=== PATIENT | male | born 1935 | race African-American/Black ===

== ENCOUNTER → 2016-06-22 | Outpatient (CLI) | payer MEDICARE, BC, OTHER ==
[2016-06-22 17:59] LABS: ANION GAP 12 (5-19); BLOOD UREA NITROGEN 26 mg/dL (7-20); CALCIUM 9.2 mg/dL (8.4-10.2); CARBON DIOXIDE 27 mmol/L (22-30); CHLORIDE 103 mmol/L (98-107); CREATININE RESULT 1.66 mg/dL (0.52-1.25); GLUCOSE 99 mg/dL (75-110); POTASSIUM 3.8 mmol/L (3.6-5.0); SODIUM 142.4 mmol/L (137-145)
== END ==
LOC: OD 16:24
PROVIDERS: ATTEND Internal Medicine Nephrology
DX: N18.3 Chronic kidney disease, stage 3 (moderate) (principal)
CPT/HCPCS: 36415; 80048

== ENCOUNTER → 2016-07-29 | Outpatient (CLI) | payer MEDICARE, BC, OTHER ==
[~2016-07-29] MED LIST: REGADENOSON INJ 0.4 MG/5 ML DISP.SYRIN IV ONE
--- NOTE | 2016-07-30 22:52 | DRAGON STRESS TEST REPORT ---
2 Day Intravenous Lexiscan Cardiolite stress test using single photon emmision computerized tomography. Date of Resting procedure: 07/30/2016 Date of Stress procedure: 07/29/2016 Ordering Provider: Dr. Erica Miller Primary Care Provider: Miss Ryann Moreno of [facility]. Indication: Chest pain, and dyspnea on exertion. Coronary risk factors: Age, dyslipidemia, and family history of coronary artery disease. Resting EKG: Sinus Rhythm. Poor R leads V1 to V6. The patient no chest pain or discomfort, and there was no arrhythmias seen. Stress EKG: No changes of ischemia. Reason for termination: Protocol. Conclusions: Normal EKG and hemodynamic response to IV Lexiscan. Nuclear data: On 07/29/2016 the patient was given intravenous Lexiscan at a dose of 0.4 mg in 5 mL intravenously, followed by flush with normal saline. Subsequently the stress dose of 32.2 millicuries of technetium 99m sestamibi was injected intravenously. As per protocol stress gated images were obtained. At rest , on 07/30/2016 the patient was given 29.8 millicuries of technetium 99m sestamibi injected intravenously. As per protocol rest non gated SPECT images were obtained Nuclear interpretation: Review of images showed that there is moderate reversible ischemia in a setting of mild scar involving the apical septum and apical apical lateral wall. There was also a mild to mild to moderate reversible ischemia in the apical and mid anterior wall. There was a scar/OR involving the apical inferior wall. . T. I D. ratio was normal at 0.80. Computer read rest, and stress left ventricular ejection fraction were 47 %, and 48 %, respectively. Conclusion: 1. There is scintigraphic evidence of Lexiscan induced moderate reversible ischemia in a setting of mild scar involving the apical septum and apical lateral wall. 2. There is scintigraphic evidence of mild to moderate reversible ischemia in the apical and mid anterior wall. 3. There is evidence of a scar/OR by Lexiscan involving the apical inferior wall. 4. 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 Recommendations: 1.Aggressive medical treatment of coronary artery disease and cardiomyopathy. 2.in view of reversible ischemia and reduction of the LV ejection fraction would strongly recommend cardiac catheterization. 3.would recommend getting an echocardiogram for LV ejection fraction correlation. 4.Aggressive risk factor modification, and treating the underlying co- morbidities. MTDD
== END ==
LOC: RAD 06:44
PROVIDERS: ATTEND Specialist
DX: R07.9 Chest pain, unspecified (principal); R06.00 Dyspnea, unspecified
CPT/HCPCS: 93017; 78452; A9500; J2785; Q9969

== ENCOUNTER → 2016-11-09 | Outpatient (CLI) | payer MEDICARE, BC, OTHER ==
[2016-11-09 16:51] LABS: APPEARANCE,URINE CLEAR; BILIRUBIN,URINE NEGATIVE (NEGATIVE); GLUCOSE, URINE NEGATIVE (NEGATIVE); KETONES,URINE NEGATIVE (NEGATIVE); LEUKOCYTE ESTERASE,URINE NEGATIVE (NEGATIVE); NITRITE,URINE NEGATIVE (NEGATIVE); PROTEIN,URINE NEGATIVE (NEGATIVE); UROBILINOGEN,URINE NEGATIVE mg/dL (<2.0)
[2016-11-09 17:13] LABS: ANION GAP 14 (5-19); BLOOD UREA NITROGEN 35 mg/dL (7-20); CALCIUM 9.3 mg/dL (8.4-10.2); CARBON DIOXIDE 24 mmol/L (22-30); CHLORIDE 104 mmol/L (98-107); CREATININE RESULT 1.96 mg/dL (0.52-1.25); GLUCOSE 163 mg/dL (75-110); POTASSIUM 3.8 mmol/L (3.6-5.0); SODIUM 142.3 mmol/L (137-145)
[2016-11-11 11:40] LABS: CREATININE URINE 115.5 mg/dL (Not Estab.); MICROALBUMIN URINE 5.5 ug/mL (Not Estab.)
== END ==
LOC: OD 15:54
PROVIDERS: ATTEND Internal Medicine Nephrology
DX: I12.9 Hypertensive chronic kidney disease with stage 1 through stage 4 chronic kidney disease, or unspecified chronic kidney disease (principal); N18.3 Chronic kidney disease, stage 3 (moderate)
CPT/HCPCS: 36415; 80048; 81001; 82043; 82570

== ENCOUNTER → 2017-03-15 | Outpatient (CLI) | payer MEDICARE, BC, OTHER ==
[2017-03-15 17:20] LABS: ABSOLUTE EOSINOPHILS # (AUTO) 0.2 10^3/uL (0.0-0.6); ABSOLUTE LYMPHOCYTES (AUTO) 1.6 10^3/uL (0.5-4.7); ABSOLUTE MONOCYTES (AUTO) 0.8 10^3/uL (0.1-1.4); ABSOLUTE NEUT (AUTO) 3.2 10^3/uL (1.7-8.2); BASOPHILS % (AUTO) 0.4 % (0-2); EOSINOPHILS % (AUTO) 2.9 % (0-6); HEMATOCRIT 36.8 % (37.9-51.0); HEMOGLOBIN 12.6 g/dL (13.5-17.0); LYMPHOCYTES % (AUTO) 27.7 % (13-45); MEAN CORPUSCULAR HEMOGLOBIN 36.3 pg (27.0-33.4); MEAN CORPUSCULAR HGB CONC 34.3 g/dL (32.0-36.0); MEAN CORPUSCULAR VOLUME 106 fl (80-97); MONOCYTES % (AUTO) 13.4 % (3-13); RED BLOOD COUNT 3.47 10^6/uL (4.35-5.55); RED CELL DISTRIBUTION WIDTH 16.4 % (11.5-14.0); SEGMENTED NEUTROPHILS % (AUTO) 55.6 % (42-78); WHITE BLOOD COUNT 5.7 10^3/uL (4.0-10.5)
[2017-03-15 17:43] LABS: ALBUMIN 3.8 g/dL (3.5-5.0); ANION GAP 12 (5-19); BLOOD UREA NITROGEN 35 mg/dL (7-20); CALCIUM 9.6 mg/dL (8.4-10.2); CARBON DIOXIDE 27 mmol/L (22-30); CHLORIDE 104 mmol/L (98-107); CREATININE RESULT 2.02 mg/dL (0.52-1.25); GLUCOSE 124 mg/dL (75-110); PHOSPHORUS 3.6 mg/dL (2.5-4.5); POTASSIUM 3.9 mmol/L (3.6-5.0); SODIUM 143.2 mmol/L (137-145)
[2017-03-15 17:44] LABS: APPEARANCE,URINE CLEAR; BILIRUBIN,URINE NEGATIVE (NEGATIVE); GLUCOSE, URINE NEGATIVE (NEGATIVE); KETONES,URINE NEGATIVE (NEGATIVE); LEUKOCYTE ESTERASE,URINE NEGATIVE (NEGATIVE); NITRITE,URINE NEGATIVE (NEGATIVE); PROTEIN,URINE NEGATIVE (NEGATIVE); URINE SPECIFIC GRAVITY 1.011; UROBILINOGEN,URINE NEGATIVE mg/dL (<2.0)
[2017-03-17 11:40] LABS: CREATININE URINE 86.1 mg/dL (Not Estab.); MICROALBUMIN URINE 4.5 ug/mL (Not Estab.)
[2017-03-17 12:04] LABS: VITAMIN D 25-HYDROXY 40.7 ng/mL (30.0-100.0)
== END ==
LOC: OD 15:55
PROVIDERS: ATTEND Internal Medicine Nephrology
DX: I12.9 Hypertensive chronic kidney disease with stage 1 through stage 4 chronic kidney disease, or unspecified chronic kidney disease (principal); N18.3 Chronic kidney disease, stage 3 (moderate)
CPT/HCPCS: 36415; 80048; 81001; 82040; 82043; 82306; 82570; 83970; 84100; 85025

== ENCOUNTER → 2017-04-26 | Outpatient (CLI) | payer MEDICARE, BC, OTHER | LOC: OD 16:37 | PROVIDERS: ATTEND Urology | DX: C61 Malignant neoplasm of prostate (principal) | CPT/HCPCS: 36415; 84153 ==

== ENCOUNTER → 2017-07-29 | Outpatient (CLI) | payer MEDICARE, BC, OTHER ==
[2017-07-29 14:13] LABS: ABSOLUTE EOSINOPHILS # (AUTO) 0.2 10^3/uL (0.0-0.6); ABSOLUTE LYMPHOCYTES (AUTO) 1.6 10^3/uL (0.5-4.7); ABSOLUTE MONOCYTES (AUTO) 0.6 10^3/uL (0.1-1.4); ABSOLUTE NEUT (AUTO) 3.3 10^3/uL (1.7-8.2); BASOPHILS % (AUTO) 0.6 % (0-2); HEMATOCRIT 36.3 % (37.9-51.0); HEMOGLOBIN 12.3 g/dL (13.5-17.0); LYMPHOCYTES % (AUTO) 27.5 % (13-45); MEAN CORPUSCULAR VOLUME 103 fl (80-97); MONOCYTES % (AUTO) 10.5 % (3-13); PLATELET COUNT 305 10^3/uL (150-450); RED BLOOD COUNT 3.52 10^6/uL (4.35-5.55); RED CELL DISTRIBUTION WIDTH 16.2 % (11.5-14.0); SEGMENTED NEUTROPHILS % (AUTO) 57.4 % (42-78); TOTAL CELLS COUNTED % (AUTO) 100 %; WHITE BLOOD COUNT 5.7 10^3/uL (4.0-10.5)
[2017-07-29 14:49] LABS: ANION GAP 13 (5-19); BLOOD UREA NITROGEN 37 mg/dL (7-20); CALCIUM 9.5 mg/dL (8.4-10.2); CARBON DIOXIDE 27 mmol/L (22-30); CHLORIDE 104 mmol/L (98-107); GLUCOSE 127 mg/dL (75-110); POTASSIUM 3.7 mmol/L (3.6-5.0); SODIUM 143.8 mmol/L (137-145)
== END ==
LOC: OD 13:43
PROVIDERS: ATTEND Internal Medicine Nephrology
DX: N18.3 Chronic kidney disease, stage 3 (moderate) (principal); D63.1 Anemia in chronic kidney disease; N25.81 Secondary hyperparathyroidism of renal origin
CPT/HCPCS: 36415; 80048; 83970; 85025

== ENCOUNTER 2017-11-05 17:47 | Inpatient (IN) | payer MEDICARE, BC, OTHER ==
[2017-11-05] MEDS ORDERED: HYDROMORPHONE HCL INJ/PF 2 MG/ML AMPULE IV PRN (18:28)
[2017-11-05] MEDS ORDERED: ONDANSETRON HCL INJ/PF 4 MG/2 ML SDV IV PRN (18:31)
[2017-11-05 19:26] LABS: ABSOLUTE EOSINOPHILS # (AUTO) 0.1 10^3/uL (0.0-0.6); ABSOLUTE LYMPHOCYTES (AUTO) 1.2 10^3/uL (0.5-4.7); ABSOLUTE NEUT (AUTO) 5.5 10^3/uL (1.7-8.2); BASOPHILS % (AUTO) 0.3 % (0-2); EOSINOPHILS % (AUTO) 1.6 % (0-6); HEMATOCRIT 32.8 % (37.9-51.0); HEMOGLOBIN 11.2 g/dL (13.5-17.0); LYMPHOCYTES % (AUTO) 15.2 % (13-45); MEAN CORPUSCULAR HEMOGLOBIN 37.1 pg (27.0-33.4); MEAN CORPUSCULAR HGB CONC 34.1 g/dL (32.0-36.0); MEAN CORPUSCULAR VOLUME 109 fl (80-97); MONOCYTES % (AUTO) 12.8 % (3-13); PLATELET COUNT 231 10^3/uL (150-450); RED BLOOD COUNT 3.02 10^6/uL (4.35-5.55); RED CELL DISTRIBUTION WIDTH 16.5 % (11.5-14.0); SEGMENTED NEUTROPHILS % (AUTO) 70.1 % (42-78); TOTAL CELLS COUNTED % (AUTO) 100 %; WHITE BLOOD COUNT 7.9 10^3/uL (4.0-10.5)
[2017-11-05 19:42] LABS: ALANINE AMINOTRANSFERASE 23 U/L (21-72); ALBUMIN 3.4 g/dL (3.5-5.0); ALKALINE PHOSPHATASE 86 U/L (38-126); ANION GAP 10 (5-19); ASPARTATE AMINO TRANSFERASE 17 U/L (17-59); BILIRUBIN,DIRECT 0.4 mg/dL (0.0-0.4); BILIRUBIN,TOTAL 0.6 mg/dL (0.2-1.3); BLOOD UREA NITROGEN 26 mg/dL (7-20); C-REACTIVE PROTEIN 79.1 mg/L (<10.0); CALCIUM 9.2 mg/dL (8.4-10.2); CARBON DIOXIDE 28 mmol/L (22-30); CHLORIDE 104 mmol/L (98-107); GLUCOSE 132 mg/dL (75-110); POTASSIUM 3.5 mmol/L (3.6-5.0); SODIUM 142.3 mmol/L (137-145); TOTAL PROTEIN 6.3 g/dL (6.3-8.2)
[2017-11-05 20:03] LABS: ERYTHROCYTE SEDIMENTATION RATE 73 mm/hr (0-20)
[2017-11-05] MEDS: CLINDAMYCIN 600 MG/D5W RTU 600 MG/50 ML RTUPB IV SCH (21:50)
[2017-11-05] MEDS: NORMAL SALINE 1000 ML 1,000 ML IV PRN (21:51)
[2017-11-05] MEDS: MORPHINE SULFATE 10 MG/ML INJ IV PRN (22:18)
[2017-11-06] MEDS: CLINDAMYCIN 600 MG/D5W RTU 600 MG/50 ML RTUPB IV SCH ×4 (03:42→21:09)
[2017-11-06] MEDS: MORPHINE SULFATE 10 MG/ML INJ IV PRN ×3 (03:42→13:45)
[2017-11-06 06:15] LABS: APPEARANCE,URINE CLEAR; BILIRUBIN,URINE NEGATIVE (NEGATIVE); COLOR,URINE YELLOW; GLUCOSE, URINE NEGATIVE (NEGATIVE); KETONES,URINE NEGATIVE (NEGATIVE); LEUKOCYTE ESTERASE,URINE NEGATIVE (NEGATIVE); NITRITE,URINE NEGATIVE (NEGATIVE); PROTEIN,URINE NEGATIVE (NEGATIVE); URINE SPECIFIC GRAVITY 1.014
[2017-11-06] MEDS ORDERED: (PENDING PHARMACY ID) (Clonidine Hcl [Catapres 0.3 Mg Tablet] 0.3 MG) PO SCH (10:15)
[2017-11-06] MEDS ORDERED: (PENDING PHARMACY ID) (Cholecalciferol (Vitamin D3) [Vitamin D3 2000 Unit Tablet] 2,000 UN PO SCH (10:15)
[2017-11-06] MEDS ORDERED: KETOROLAC TROMETHAMINE INJ/PF 30 MG/1 ML SDV ONE (10:18)
[2017-11-06] MEDS ORDERED: CLONIDINE HCL 0.1 MG TABLET PO ONE (11:30)
[2017-11-06] MEDS ORDERED: CHOLECALCIFEROL (D3) 1,000 UNIT TABLET PO ONE (11:30)
[2017-11-06] MEDS ORDERED: ASPIRIN 81 MG TABLET, ENT COATED PO ONE (11:30)
[2017-11-06] MEDS ORDERED: VALSARTAN 160 MG TABLET PO ONE (11:30)
[2017-11-06] MEDS ORDERED: AMLODIPINE BESYLATE 10 MG TABLET PO ONE (11:30)
[2017-11-06] MEDS ORDERED: HYDROCHLOROTHIAZIDE 25 MG TABLET PO ONE (11:30)
--- NOTE | 2017-11-06 12:52 | PDOC H&P ---
History of Present Illness Admission Date/PCP: 11/05/17 17:47 BRIDGET MENA MD History of Present Illness: BILLIE AVILES is a 82 year old male he has a history of chronic lymphedema of both lower extremities, hypertension, morbid obesity, body mass index 52.2, chronic kidney disease stage III, he came to the office after 3 years of hiatus for evaluation of severe pain in both lower extremities. I have not seen this patient in 3 years, he complained of severe pain involving both lower extremities but more so on the left leg on examination in the office there is redness of the left leg very tender to touch consistent with cellulitis. He was admitted directly from the office to the hospital for evaluation and management. The CRP and ESR was severely elevated suggestive of inflammation, the white blood cell was normal his serum creatinine was elevated. Since the last time I saw him his lymphedema has progressively gotten bigger there is uniform enlargement of both lower extremities from the feet to the thigh. He has also been diagnosed with chronic kidney disease, he told me that he follows with director inpatient headache program, it seems that he has secondary hyperparathyroidism. Past Medical History Cardiac Medical History: Reports: Hypertension, Pulmonary Embolism, Other - Chronic lymphedema of both lower extremities Endocrine Medical History: Reports: Other - Morbid obesity Renal/ Medical History: Reports: Chronic Kidney Disease, Other - Chronic kidney disease stage III Malignancy Medical History: Reports: Pancreatic Cancer Past Surgical History Past Surgical History: Reports: Appendectomy, Tonsillectomy Social History Smoking Status: Former Smoker Last Time Smoked: 1973 Frequency of Alcohol Use: None Hx Recreational Drug Use: No Drugs: None Hx Prescription Drug Abuse: No Family History Family History: Other - CHF Parental Family History Reviewed: Yes Children Family History Reviewed: Yes Sibling(s) Family History Reviewed.: Yes Medication/Allergy Home Medications: Amlodipine/Valsartan/Hcthiazid [Exforge Hct 10-320-25 mg Tablet] 1 tab PO DAILY 11/18/13 Clonidine HCl [Catapres 0.3 mg Tablet] 0.3 mg PO BID 11/18/13 Cholecalciferol (Vitamin D3) [Vitamin D3 2000 unit Tablet] 2,000 unit PO DAILY 04/30/16 Aspirin [Ecotrin 81 mg EC Tablet] 81 mg PO DAILY tabec 05/01/16 Bumetanide [Bumex 1 mg Tablet] 1 mg PO BID tablet 05/01/16 Calcitriol [Rocaltrol 0.25 Mcg Capsule] 0.25 mcg PO MOWEFR 11/05/17 Allergies/Adverse Reactions: No Known Allergies Allergy (Verified 11/05/17 20:58) Review of Systems Constitutional: PRESENT: fever(s) Eyes: ABSENT: visual disturbances Ears: ABSENT: hearing changes Cardiovascular: ABSENT: chest pain, dyspnea on exertion, edema, orthropnea, palpitations Respiratory: ABSENT: cough, hemoptysis Gastrointestinal: ABSENT: abdominal pain, constipation, diarrhea, hematemesis, hematochezia, nausea, vomiting Genitourinary: ABSENT: dysuria, hematuria Musculoskeletal: PRESENT: back pain, joint swelling Integumentary: PRESENT: erythema. ABSENT: rash, wounds Neurological: ABSENT: abnormal gait, abnormal speech, confusion, dizziness, focal weakness, syncope Psychiatric: ABSENT: anxiety, depression, homidical ideation, suicidal ideation Endocrine: ABSENT: cold intolerance, heat intolerance, menstrual abnormalities, polydipsia, polyuria Hematologic/Lymphatic: ABSENT: easy bleeding, easy bruising, lymphadenopathy Physical Exam Vital Signs: Temp Pulse Resp BP Pulse Ox 97.9 F 68 20 140/72 H 96 11/06/17 11:13 11/06/17 11:13 11/06/17 11:13 11/06/17 11:13 11/06/17 11:13 Intake & Output 11/05/17 11/06/17 11/07/17 06:59 06:59 06:59 Intake Total 728 Output Total 650 Balance 78 Weight 108.6 kg 179.3 kg General appearance: PRESENT: no acute distress, well-developed, well-nourished Head exam: PRESENT: atraumatic, normocephalic Eye exam: PRESENT: conjunctiva pink, EOMI, PERRLA Ear exam: PRESENT: normal external ear exam Mouth exam: PRESENT: moist, tongue midline Neck exam: PRESENT: full ROM Respiratory exam: PRESENT: clear to auscultation emeka Cardiovascular exam: PRESENT: RRR, +S1, +S2 Vascular exam: PRESENT: normal capillary refill GI/Abdominal exam: PRESENT: normal bowel sounds, soft Rectal exam: PRESENT: deferred Extremities exam: PRESENT: pedal edema, tenderness, other - There is redness of the lower extremities more on the left leg than the right, bilateral lymphedema Neurological exam: PRESENT: alert, awake, oriented to person, oriented to place , oriented to time, oriented to situation, CN II-XII grossly intact Psychiatric exam: PRESENT: appropriate affect, normal mood Skin exam: PRESENT: dry, intact, warm Results Laboratory Results: 11/05/17 19:12 11/05/17 19:12 11/05/17 11/05/17 11/06/17 19:12 19:12 06:00 WBC 7.9 RBC 3.02 L Hgb 11.2 L Hct 32.8 L MCV 109 H MCH 37.1 H MCHC 34.1 RDW 16.5 H Plt Count 231 Seg Neutrophils % 70.1 Lymphocytes % 15.2 Monocytes % 12.8 Eosinophils % 1.6 Basophils % 0.3 Absolute Neutrophils 5.5 Absolute Lymphocytes 1.2 Absolute Monocytes 1.0 Absolute Eosinophils 0.1 Absolute Basophils 0.0 Sodium 142.3 Potassium 3.5 L Chloride 104 Carbon Dioxide 28 Anion Gap 10 BUN 26 H Creatinine 2.24 H Est GFR ( Amer) 34 L Est GFR (Non-Af Amer) 28 L Glucose 132 H Calcium 9.2 Total Bilirubin 0.6 AST 17 ALT 23 Alkaline Phosphatase 86 C-Reactive Protein 79.1 H Total Protein 6.3 Albumin 3.4 L Urine Color YELLOW Urine Appearance CLEAR Urine pH 5.0 Ur Specific [place] 1.014 Urine Protein NEGATIVE Urine Glucose (UA) NEGATIVE Urine Ketones NEGATIVE Urine Blood NEGATIVE Urine Nitrite NEGATIVE Ur Leukocyte Esterase NEGATIVE Urine WBC (Auto) 1 Urine RBC (Auto) 0 Assessment & Plan - Diagnosis (1) Bilateral cellulitis of lower leg Is this a current diagnosis for this admission?: Yes Plan: He has markers of inflammation that suggest severe inflammation, patient will be started empirically on IV antibiotic clindamycin, this will cover potential pathogens that causes cellulitis. (2) Lymphedema of both lower extremities Is this a current diagnosis for this admission?: Yes (3) [id number] kidney injury Qualifiers: Acute renal failure type: unspecified Chronic kidney disease stage: stage 3 (moderate) Qualified Code(s): N17.9 - Acute kidney failure, unspecified; N18.3 - Chronic kidney disease, stage 3 (moderate); N18.3 - Chronic kidney disease, stage 3 (moderate); N18.3 - Chronic kidney disease, stage 3 (moderate) Is this a current diagnosis for this admission?: Yes Plan: There is acute on chronic kidney injury start hydration
--- NOTE | 2017-11-06 12:57 | PDOC PROGRESS REPORT ---
Subjective Progress Note for:: 11/06/17 Subjective:: He was seen by the bedside, he was admitted yesterday for the management of cellulitis, on IV antibiotic, yesterday patient have to sleep on the recliner because there was no bariatric bed available last night, is very upset about that, the nursing staff is making arrangement for a bariatric bed. Reason For Visit: SEVERE CELLULITIS OF BOTH LEGS, LYMPHEDMA BOTH Physical Exam Vital Signs: Temp Pulse Resp BP Pulse Ox 97.9 F 68 20 140/72 H 96 11/06/17 11:13 11/06/17 11:13 11/06/17 11:13 11/06/17 11:13 11/06/17 11:13 Intake & Output 11/05/17 11/06/17 11/07/17 06:59 06:59 06:59 Intake Total 728 Output Total 650 Balance 78 Weight 108.6 kg 179.3 kg General appearance: PRESENT: mild distress Eye exam: PRESENT: PERRLA Respiratory exam: PRESENT: clear to auscultation emeka Cardiovascular exam: PRESENT: +S1, +S2 GI/Abdominal exam: PRESENT: soft Extremities exam: PRESENT: other - Redness of the lower extremities, bilateral lymphedema Neurological exam: PRESENT: alert, CN II-XII grossly intact Results Laboratory Results: 11/05/17 19:12 11/05/17 19:12 11/05/17 11/05/17 11/06/17 19:12 19:12 06:00 WBC 7.9 RBC 3.02 L Hgb 11.2 L Hct 32.8 L MCV 109 H MCH 37.1 H MCHC 34.1 RDW 16.5 H Plt Count 231 Seg Neutrophils % 70.1 Lymphocytes % 15.2 Monocytes % 12.8 Eosinophils % 1.6 Basophils % 0.3 Absolute Neutrophils 5.5 Absolute Lymphocytes 1.2 Absolute Monocytes 1.0 Absolute Eosinophils 0.1 Absolute Basophils 0.0 Sodium 142.3 Potassium 3.5 L Chloride 104 Carbon Dioxide 28 Anion Gap 10 BUN 26 H Creatinine 2.24 H Est GFR ( Amer) 34 L Est GFR (Non-Af Amer) 28 L Glucose 132 H Calcium 9.2 Total Bilirubin 0.6 AST 17 ALT 23 Alkaline Phosphatase 86 C-Reactive Protein 79.1 H Total Protein 6.3 Albumin 3.4 L Urine Color YELLOW Urine Appearance CLEAR Urine pH 5.0 Ur Specific [place] 1.014 Urine Protein NEGATIVE Urine Glucose (UA) NEGATIVE Urine Ketones NEGATIVE Urine Blood NEGATIVE Urine Nitrite NEGATIVE Ur Leukocyte Esterase NEGATIVE Urine WBC (Auto) 1 Urine RBC (Auto) 0 Assessment & Plan - Diagnosis (1) Bilateral cellulitis of lower leg Is this a current diagnosis for this admission?: Yes Plan: Continue IV antibiotic (2) Lymphedema of both lower extremities Is this a current diagnosis for this admission?: Yes (3) [id number]-[id number] kidney injury Qualifiers: Acute renal failure type: unspecified Chronic kidney disease stage: stage 3 (moderate) Qualified Code(s): N17.9 - Acute kidney failure, unspecified; N18.3 - Chronic kidney disease, stage 3 (moderate); N18.3 - Chronic kidney disease, stage 3 (moderate); N18.3 - Chronic kidney disease, stage 3 (moderate) Is this a current diagnosis for this admission?: Yes
--- NOTE | 2017-11-06 13:26 | RADIOLOGY REPORT (SQ) ---
EXAM DESCRIPTION: U/S RETROPERITON (RENAL/AORTA) COMPLETED DATE/TIME: 11/06/2017 1:07 pm REASON FOR STUDY: abnormal lab values COMPARISON: 2013. TECHNIQUE: Dynamic and static grayscale images acquired of the kidneys and bladder and recorded on P ACS. Additional selected color Doppler and spectral images recorded. LIMITATIONS: Limiting body habitus and obscuring bowel gas. FINDINGS: RIGHT KIDNEY: Poorly seen. No gross enlargement or hydronephrosis or mass. LEFT KIDNEY: The suggests of enlargement or hydronephrosis or solid mass. Nearly 5 cm simple appear ing cyst. BLADDER: No mass or stones. OTHER FINDINGS: No other significant finding. IMPRESSION: No suspicious urinary tract findings. Limited evaluation as above. No suggestion of ob struction. TECHNICAL DOCUMENTATION: JOB ID: [id number] [employer]- All Rights Reserved Reading location - IP/workstation name: [email or web address]
[2017-11-06 14:24] LABS: ABSOLUTE EOSINOPHILS # (AUTO) 0.1 10^3/uL (0.0-0.6); ABSOLUTE LYMPHOCYTES (AUTO) 1.3 10^3/uL (0.5-4.7); ABSOLUTE MONOCYTES (AUTO) 0.8 10^3/uL (0.1-1.4); ABSOLUTE NEUT (AUTO) 3.8 10^3/uL (1.7-8.2); BASOPHILS % (AUTO) 0.4 % (0-2); EOSINOPHILS % (AUTO) 1.9 % (0-6); HEMATOCRIT 27.7 % (37.9-51.0); HEMOGLOBIN 9.5 g/dL (13.5-17.0); LYMPHOCYTES % (AUTO) 21.4 % (13-45); MEAN CORPUSCULAR HEMOGLOBIN 37.6 pg (27.0-33.4); MEAN CORPUSCULAR HGB CONC 34.2 g/dL (32.0-36.0); MEAN CORPUSCULAR VOLUME 110 fl (80-97); MONOCYTES % (AUTO) 13.8 % (3-13); PLATELET COUNT 201 10^3/uL (150-450); RED BLOOD COUNT 2.52 10^6/uL (4.35-5.55); RED CELL DISTRIBUTION WIDTH 15.8 % (11.5-14.0); SEGMENTED NEUTROPHILS % (AUTO) 62.5 % (42-78); TOTAL CELLS COUNTED % (AUTO) 100 %
[2017-11-06 14:38] LABS: ALANINE AMINOTRANSFERASE 19 U/L (21-72); ALBUMIN 2.5 g/dL (3.5-5.0); ALKALINE PHOSPHATASE 63 U/L (38-126); ANION GAP 10 (5-19); ASPARTATE AMINO TRANSFERASE 12 U/L (17-59); BILIRUBIN,DIRECT 0.3 mg/dL (0.0-0.4); BILIRUBIN,TOTAL 0.4 mg/dL (0.2-1.3); BLOOD UREA NITROGEN 21 mg/dL (7-20); CALCIUM 7.5 mg/dL (8.4-10.2); CARBON DIOXIDE 24 mmol/L (22-30); CHLORIDE 111 mmol/L (98-107); GLUCOSE 97 mg/dL (75-110); SODIUM 144.7 mmol/L (137-145); TOTAL PROTEIN 5.1 g/dL (6.3-8.2)
[2017-11-06 14:46] LABS: POTASSIUM 2.8 mmol/L (3.6-5.0)
[2017-11-06] MEDS ORDERED: POTASSIUM CHLORIDE 10 MEQ TABLET.SA PO ONE (15:04)
[2017-11-06] MEDS ORDERED: COLCHICINE 0.6 MG TABLET PO ONE (16:00)
[2017-11-06 16:08] LABS: CREATINE KINASE MB 0.69 ng/mL (<4.55)
[2017-11-06 16:09] LABS: TROPONIN I < 0.012 ng/mL
[2017-11-06 16:21] LABS: UR PRO/CREAT RATIO RESULT 0.1 mg/mg (0.0-0.2); URINE CREATININE 142.4 mg/dL (22-328); URINE PROTEIN 12.9 mg/dL (<12)
--- NOTE | 2017-11-06 16:22 | EKG REPORT ---
SEVERITY:- ABNORMAL ECG - SINUS RHYTHM LEFT BUNDLE BRANCH BLOCK TYPE OF IVCD : Confirmed by: Erica Miller MD 06-Nov-2017 16:21:13
[2017-11-06] MEDS: NORMAL SALINE 1000 ML 1,000 ML IV PRN (16:36)
--- NOTE | 2017-11-06 17:30 | XCELERA REPORT ---
[address] [address] Lower Extremity Venous Evaluation Name: BILLIE AVLIES Age: 82 yrs Gender: Male : 1935 Patient Status: Inpatient Patient Location: [address] [place] [address] Study Date: 11/05/2017 07:34 PM Procedure: Color flow and duplex imaging bilaterally of the veins of the lower extremities as well as the Common Femoral veins. Reason For Study: SEVERE CELLULITIS, LYMPHEDEMA OF BOTH LEGS Ordering Physician: BRIDGET MENA Performed By: Minh Jimenes Right Sided Venous Evaluation Study challenging due to edema and body habitus,. Greater Saphenous and Posterior Tibial vein not well seen. Otherwise normal vessel filling wall to wall, compression and augmentation as well as Colour flow down to the infrageniculate veins. Left Sided Venous Evaluation Study challenging due to edema and body habitus,. Greater Saphenous and Posterior Tibial vein not well seen. Otherwise normal vessel filling wall to wall, compression and augmentation as well as Colour flow down to the infrageniculate veins. Interpretation Summary No duplex evidence of DVT or obstruction in the bilateral lower extremities. : BRIDGET MENA > Volodymyr Juarez
[2017-11-06] MEDS: CLONIDINE HCL 0.1 MG TABLET PO SCH (19:07)
[2017-11-06] MEDS: POTASSIUM CHLORIDE 10 MEQ TABLET.SA PO SCH ×3 (19:08→22:54)
[2017-11-06] MEDS: COLCHICINE 0.6 MG TABLET PO SCH (21:09)
[2017-11-06 23:47] LABS: CREATINE KINASE MB 0.77 ng/mL (<4.55); TROPONIN I 0.016 ng/mL
[2017-11-07] MEDS: CLINDAMYCIN 600 MG/D5W RTU 600 MG/50 ML RTUPB IV SCH ×4 (02:23→21:05)
[2017-11-07 08:28] LABS: ABSOLUTE EOSINOPHILS # (AUTO) 0.2 10^3/uL (0.0-0.6); ABSOLUTE LYMPHOCYTES (AUTO) 1.4 10^3/uL (0.5-4.7); ABSOLUTE MONOCYTES (AUTO) 0.6 10^3/uL (0.1-1.4); ABSOLUTE NEUT (AUTO) 3.5 10^3/uL (1.7-8.2); BASOPHILS % (AUTO) 0.6 % (0-2); EOSINOPHILS % (AUTO) 3.9 % (0-6); HEMOGLOBIN 10.9 g/dL (13.5-17.0); LYMPHOCYTES % (AUTO) 24.3 % (13-45); MEAN CORPUSCULAR HEMOGLOBIN 37.7 pg (27.0-33.4); MEAN CORPUSCULAR HGB CONC 33.9 g/dL (32.0-36.0); MONOCYTES % (AUTO) 10.8 % (3-13); PLATELET COUNT 223 10^3/uL (150-450); RED BLOOD COUNT 2.88 10^6/uL (4.35-5.55); RED CELL DISTRIBUTION WIDTH 16.2 % (11.5-14.0); SEGMENTED NEUTROPHILS % (AUTO) 60.4 % (42-78); TOTAL CELLS COUNTED % (AUTO) 100 %; WHITE BLOOD COUNT 5.8 10^3/uL (4.0-10.5)
[2017-11-07 08:42] LABS: ALANINE AMINOTRANSFERASE 15 U/L (21-72); ALBUMIN 3.1 g/dL (3.5-5.0); ALKALINE PHOSPHATASE 64 U/L (38-126); ANION GAP 10 (5-19); ASPARTATE AMINO TRANSFERASE 22 U/L (17-59); BILIRUBIN,DIRECT 0.5 mg/dL (0.0-0.4); BILIRUBIN,TOTAL 0.5 mg/dL (0.2-1.3); BLOOD UREA NITROGEN 25 mg/dL (7-20); CARBON DIOXIDE 26 mmol/L (22-30); CHLORIDE 110 mmol/L (98-107); CREATINE KINASE 44 U/L (55-170); GLUCOSE 109 mg/dL (75-110); SODIUM 145.5 mmol/L (137-145); TOTAL PROTEIN 6.3 g/dL (6.3-8.2)
[2017-11-07 08:50] LABS: POTASSIUM 4.4 mmol/L (3.6-5.0)
[2017-11-07 08:52] LABS: CREATINE KINASE MB 0.78 ng/mL (<4.55); TROPONIN I 0.016 ng/mL
[2017-11-07 09:00] LABS: MEAN CORPUSCULAR VOLUME 111 fl (80-97)
[2017-11-07 09:03] LABS: ANISOCYTOSIS 1+; PLATELET COMMENT ADEQUATE
[2017-11-07] MEDS: CLONIDINE HCL 0.1 MG TABLET PO SCH ×2 (09:52→18:52)
[2017-11-07] MEDS: HYDROCHLOROTHIAZIDE 25 MG TABLET PO SCH (09:52)
[2017-11-07] MEDS: CHOLECALCIFEROL (D3) 1,000 UNIT TABLET PO SCH (09:52)
[2017-11-07] MEDS: ASPIRIN 81 MG TABLET, ENT COATED PO SCH (09:52)
[2017-11-07] MEDS: VALSARTAN 160 MG TABLET PO SCH (09:53)
[2017-11-07] MEDS: AMLODIPINE BESYLATE 10 MG TABLET PO SCH (09:53)
[2017-11-07] MEDS: COLCHICINE 0.6 MG TABLET PO SCH ×2 (09:53→21:05)
[2017-11-07] MEDS: NORMAL SALINE 1000 ML 1,000 ML IV PRN (10:04)
[2017-11-07] MEDS ORDERED: CYANOCOBALAMIN (VITAMIN B-12) INJ 1000 MCG/1 ML VIAL IM ONE (15:00)
--- NOTE | 2017-11-07 15:52 | PDOC PROGRESS REPORT ---
Subjective Progress Note for:: 11/07/17 Subjective:: Patient was seen by the bedside he has less pain today. He has macrocytosis the serum B12 level very low consistent with pernicious anemia. I believe he probably have superimposed acute gouty arthropathy of the right knee separate from the cellulitis of the lower extremities, yesterday he was started on colchicine 0.6 p.o. twice daily that seems to have improved some of the extreme pain he was experiencing yesterday. The need for morphine is less today Reason For Visit: SEVERE CELLULITIS OF BOTH LEGS, LYMPHEDMA BOTH Physical Exam Vital Signs: Temp Pulse Resp BP Pulse Ox 97.7 F 61 20 111/49 L 97 11/07/17 11:30 11/07/17 11:30 11/07/17 11:30 11/07/17 11:30 11/07/17 11:30 Intake & Output 11/06/17 11/07/17 11/08/17 06:59 06:59 06:59 Intake Total 728 2408 630 Output Total 650 700 Balance 78 1708 630 Weight 108.6 kg 187.2 kg General appearance: PRESENT: no acute distress Eye exam: PRESENT: PERRLA Respiratory exam: PRESENT: clear to auscultation emeka Cardiovascular exam: PRESENT: +S1, +S2 GI/Abdominal exam: PRESENT: soft Neurological exam: PRESENT: alert Results Laboratory Results: 11/07/17 07:45 11/07/17 07:45 11/07/17 11/07/17 11/07/17 07:45 07:45 07:45 WBC 5.8 RBC 2.88 L Hgb 10.9 L Hct 32.0 L MCV 111 H MCH 37.7 H MCHC 33.9 RDW 16.2 H Plt Count 223 Seg Neutrophils % 60.4 Lymphocytes % 24.3 Monocytes % 10.8 Eosinophils % 3.9 Basophils % 0.6 Absolute Neutrophils 3.5 Absolute Lymphocytes 1.4 Absolute Monocytes 0.6 Absolute Eosinophils 0.2 Absolute Basophils 0.0 Sodium 145.5 H Potassium 4.4 D Chloride 110 H Carbon Dioxide 26 Anion Gap 10 BUN 25 H Creatinine 2.10 H Est GFR ( Amer) 37 L Est GFR (Non-Af Amer) 30 L Glucose 109 Calcium 9.0 Total Bilirubin 0.5 AST 22 ALT 15 L Alkaline Phosphatase 64 Total Protein 6.3 Albumin 3.1 L Vitamin B12 < 159.0 L 11/06/17 06:00 Clean Catch Midstream Urine Culture - Final Mixed Urogenital Antonella 11/06/17 11/06/17 11/06/17 15:15 15:15 23:04 Creatine Kinase 55 37 L CK-MB (CK-2) 0.69 Troponin I < 0.012 11/06/17 11/07/17 11/07/17 23:04 07:45 07:45 Creatine Kinase 44 L CK-MB (CK-2) 0.77 0.78 Troponin I 0.016 0.016 Impressions: Renal Ultrasound 11/06/17 00:00 IMPRESSION: No suspicious urinary tract findings. Limited evaluation as above. No suggestion of obstruction. Assessment & Plan - Diagnosis (1) Bilateral cellulitis of lower leg Is this a current diagnosis for this admission?: Yes (2) Lymphedema of both lower extremities Is this a current diagnosis for this admission?: Yes (3) Jqgvo-af-mpmxlap kidney injury Qualifiers: Acute renal failure type: unspecified Chronic kidney disease stage: stage 3 (moderate) Qualified Code(s): N17.9 - Acute kidney failure, unspecified; N18.3 - Chronic kidney disease, stage 3 (moderate); N18.3 - Chronic kidney disease, stage 3 (moderate); N18.3 - Chronic kidney disease, stage 3 (moderate) Is this a current diagnosis for this admission?: Yes (4) Pernicious anemia Is this a current diagnosis for this admission?: Yes Plan: Start B12 shots (5) Acute gouty arthritis Is this a current diagnosis for this admission?: Yes Plan: Continue colchicine
[2017-11-07] MEDS: HEPARIN SOD (PORCINE) 5,000 UNIT/ML 1 ML SYRINGE SUBCUT SCH (21:05)
[2017-11-08] MEDS: CLINDAMYCIN 600 MG/D5W RTU 600 MG/50 ML RTUPB IV SCH ×3 (02:25→14:39)
[2017-11-08] MEDS: HEPARIN SOD (PORCINE) 5,000 UNIT/ML 1 ML SYRINGE SUBCUT SCH ×3 (05:41→21:33)
[2017-11-08] MEDS ORDERED: FEBUXOSTAT 40 MG TABLET PO ONE (09:30)
[2017-11-08 09:47] LABS: ABSOLUTE EOSINOPHILS # (AUTO) 0.3 10^3/uL (0.0-0.6); ABSOLUTE LYMPHOCYTES (AUTO) 1.4 10^3/uL (0.5-4.7); ABSOLUTE MONOCYTES (AUTO) 0.6 10^3/uL (0.1-1.4); ABSOLUTE NEUT (AUTO) 2.7 10^3/uL (1.7-8.2); BASOPHILS % (AUTO) 0.4 % (0-2); EOSINOPHILS % (AUTO) 6.3 % (0-6); HEMATOCRIT 32.9 % (37.9-51.0); HEMOGLOBIN 11.1 g/dL (13.5-17.0); LYMPHOCYTES % (AUTO) 28.6 % (13-45); MEAN CORPUSCULAR HEMOGLOBIN 37.1 pg (27.0-33.4); MEAN CORPUSCULAR HGB CONC 33.8 g/dL (32.0-36.0); MONOCYTES % (AUTO) 10.9 % (3-13); PLATELET COUNT 237 10^3/uL (150-450); RED CELL DISTRIBUTION WIDTH 16.1 % (11.5-14.0); SEGMENTED NEUTROPHILS % (AUTO) 53.8 % (42-78); TOTAL CELLS COUNTED % (AUTO) 100 %; WHITE BLOOD COUNT 5.1 10^3/uL (4.0-10.5)
[2017-11-08 09:50] LABS: MEAN CORPUSCULAR VOLUME 110 fl (80-97)
[2017-11-08] MEDS: VALSARTAN 160 MG TABLET PO SCH (09:55)
[2017-11-08] MEDS: CHOLECALCIFEROL (D3) 1,000 UNIT TABLET PO SCH (09:55)
[2017-11-08] MEDS: AMLODIPINE BESYLATE 10 MG TABLET PO SCH (09:56)
[2017-11-08] MEDS: CLONIDINE HCL 0.1 MG TABLET PO SCH ×2 (09:56→18:49)
[2017-11-08] MEDS: ASPIRIN 81 MG TABLET, ENT COATED PO SCH (09:56)
[2017-11-08] MEDS: HYDROCHLOROTHIAZIDE 25 MG TABLET PO SCH (09:56)
[2017-11-08] MEDS: COLCHICINE 0.6 MG TABLET PO SCH ×2 (09:56→21:33)
[2017-11-08] MEDS ORDERED: CALCITRIOL 0.25 MCG CAPSULE PO SCH (10:00)
[2017-11-08 10:01] LABS: ABSOLUTE EOSINOPHILS # (AUTO) 0.3 10^3/uL (0.0-0.6); ABSOLUTE LYMPHOCYTES (AUTO) 1.2 10^3/uL (0.5-4.7); ABSOLUTE MONOCYTES (AUTO) 0.5 10^3/uL (0.1-1.4); ABSOLUTE NEUT (AUTO) 2.6 10^3/uL (1.7-8.2); BASOPHILS % (AUTO) 0.1 % (0-2); EOSINOPHILS % (AUTO) 6.3 % (0-6); HEMATOCRIT 30.9 % (37.9-51.0); HEMOGLOBIN 10.5 g/dL (13.5-17.0); LYMPHOCYTES % (AUTO) 26.4 % (13-45); MEAN CORPUSCULAR HEMOGLOBIN 37.5 pg (27.0-33.4); MEAN CORPUSCULAR HGB CONC 33.9 g/dL (32.0-36.0); MEAN CORPUSCULAR VOLUME 111 fl (80-97); MONOCYTES % (AUTO) 10.2 % (3-13); PLATELET COUNT 213 10^3/uL (150-450); RED BLOOD COUNT 2.79 10^6/uL (4.35-5.55); TOTAL CELLS COUNTED % (AUTO) 100 %; WHITE BLOOD COUNT 4.5 10^3/uL (4.0-10.5)
[2017-11-08 10:13] LABS: ALANINE AMINOTRANSFERASE 19 U/L (21-72); ALBUMIN 3.2 g/dL (3.5-5.0); ALKALINE PHOSPHATASE 75 U/L (38-126); ANION GAP 13 (5-19); ASPARTATE AMINO TRANSFERASE 17 U/L (17-59); BILIRUBIN,DIRECT 0.3 mg/dL (0.0-0.4); BILIRUBIN,TOTAL 0.3 mg/dL (0.2-1.3); BLOOD UREA NITROGEN 26 mg/dL (7-20); CALCIUM 9.1 mg/dL (8.4-10.2); CARBON DIOXIDE 23 mmol/L (22-30); CHLORIDE 109 mmol/L (98-107); GLUCOSE 113 mg/dL (75-110); POTASSIUM 4.3 mmol/L (3.6-5.0); SODIUM 145.2 mmol/L (137-145); TOTAL PROTEIN 6.1 g/dL (6.3-8.2)
[2017-11-08 10:18] LABS: ALANINE AMINOTRANSFERASE 17 U/L (21-72); ALBUMIN 2.9 g/dL (3.5-5.0); ALKALINE PHOSPHATASE 70 U/L (38-126); ANION GAP 11 (5-19); ASPARTATE AMINO TRANSFERASE 16 U/L (17-59); BILIRUBIN,DIRECT 0.2 mg/dL (0.0-0.4); BILIRUBIN,TOTAL 0.2 mg/dL (0.2-1.3); BLOOD UREA NITROGEN 26 mg/dL (7-20); CALCIUM 8.8 mg/dL (8.4-10.2); CARBON DIOXIDE 24 mmol/L (22-30); CHLORIDE 109 mmol/L (98-107); GLUCOSE 129 mg/dL (75-110); SODIUM 144.2 mmol/L (137-145); TOTAL PROTEIN 5.6 g/dL (6.3-8.2)
[2017-11-08 10:21] LABS: ANISOCYTOSIS 1+; OVALOCYTES SLIGHT; PLATELET COMMENT ADEQUATE; POIKILOCYTOSIS SLIGHT; TOXIC GRANULATION 1+
[2017-11-08] MEDS: CYANOCOBALAMIN (VITAMIN B-12) INJ 1000 MCG/1 ML VIAL IM SCH (13:42)
[2017-11-08] MEDS: NORMAL SALINE 1000 ML 1,000 ML IV PRN (21:34)
--- NOTE | 2017-11-08 21:38 | PDOC DISCHARGE SUMMARY ---
General - Admit/Disc Date/PCP Admission Date/Primary Care Provider: 11/05/17 17:47 BRIDGET MENA MD Discharge Date: 11/08/17 - Discharge Diagnosis (1) Bilateral cellulitis of lower leg Is this a current diagnosis for this admission?: Yes (2) Lymphedema of both lower extremities Is this a current diagnosis for this admission?: Yes (3) Kcoib-zs-nlwllpy kidney injury Is this a current diagnosis for this admission?: Yes (4) Pernicious anemia Is this a current diagnosis for this admission?: Yes (5) Acute gouty arthritis Is this a current diagnosis for this admission?: Yes - Additional Information Prescriptions: Colchicine [Colcrys 0.6 mg Tablet] 0.6 mg PO Q12 #30 tablet Cyanocobalamin (Vitamin B-12) [Vitamin B-12 Inj 1000 Mcg/1 ml Vial] 1,000 mcg IM Q7D #12 vial Febuxostat [Uloric 40 mg Tablet] 40 mg PO DAILY #90 tablet Home Medications: Amlodipine/Valsartan/Hcthiazid [Exforge Hct 10-320-25 mg Tablet] 1 tab PO DAILY 11/18/13 Clonidine HCl [Catapres 0.3 mg Tablet] 0.3 mg PO BID 11/18/13 Cholecalciferol (Vitamin D3) [Vitamin D3 2000 unit Tablet] 2,000 unit PO DAILY 04/30/16 Aspirin [Ecotrin 81 mg EC Tablet] 81 mg PO DAILY tabec 05/01/16 Bumetanide [Bumex 1 mg Tablet] 1 mg PO BID tablet 05/01/16 Calcitriol [Rocaltrol 0.25 mcg Capsule] 0.25 mcg PO MOWEFR 11/05/17 Colchicine [Colcrys 0.6 mg Tablet] 0.6 mg PO Q12 #30 tablet 11/08/17 Cyanocobalamin (Vitamin B-12) [Vitamin B-12 Inj 1000 Mcg/1 ml Vial] 1,000 mcg IM Q7D #12 vial 11/08/17 Febuxostat [Uloric 40 mg Tablet] 40 mg PO DAILY #90 tablet 11/08/17 History of Present Illness History of Present Illness: BILLIE AVILES is a 82 year old male he has a history of chronic lymphedema of both lower extremities, hypertension, morbid obesity, body mass index 52.2, chronic kidney disease stage III, he came to the office after 3 years of hiatus for evaluation of severe pain in both lower extremities. I have not seen this patient in 3 years, he complained of severe pain involving both lower extremities but more so on the left leg on examination in the office there is redness of the left leg very tender to touch consistent with cellulitis. He was admitted directly from the office to the hospital for evaluation and management. The CRP and ESR was severely elevated suggestive of inflammation, the white blood cell was normal his serum creatinine was elevated. Since the last time I saw him his lymphedema has progressively gotten bigger there is uniform enlargement of both lower extremities from the feet to the thigh. He has also been diagnosed with chronic kidney disease, he told me that he follows with [facility], it seems that he has secondary hyperparathyroidism. Hospital Course Hospital Course: He was admitted for the management of cellulitis of the lower extremities, he was treated with IV clindamycin. Hospital course was complicated with acute gout of the left knee treated with colchicine successfully. Also found to have pernicious anemia, there was macrocytosis, B12 level was a low, he was started on B12 injection daily. Also found to have hyperuricemia, this was treated with uloric Physical Exam Vital Signs: Temp Pulse Resp BP Pulse Ox 97.6 F 62 18 122/63 99 11/08/17 16:12 11/08/17 16:12 11/08/17 16:12 11/08/17 16:12 11/08/17 16:12 Intake & Output 11/07/17 11/08/17 11/09/17 06:59 06:59 06:59 Intake Total 2408 2550 2240 Output Total 700 600 Balance 1708 1950 2240 Weight 187.2 kg 187.2 kg General appearance: PRESENT: no acute distress, well-developed, well-nourished Head exam: PRESENT: atraumatic, normocephalic Eye exam: PRESENT: conjunctiva pink, EOMI, PERRLA Ear exam: PRESENT: normal external ear exam Mouth exam: PRESENT: moist, tongue midline Neck exam: PRESENT: full ROM Respiratory exam: PRESENT: clear to auscultation emeka Cardiovascular exam: PRESENT: RRR, +S1, +S2 GI/Abdominal exam: PRESENT: normal bowel sounds, soft Rectal exam: PRESENT: deferred Neurological exam: PRESENT: alert, awake, oriented to person, oriented to place , oriented to time, oriented to situation, CN II-XII grossly intact Psychiatric exam: PRESENT: appropriate affect, normal mood Skin exam: PRESENT: dry, intact, warm Results Laboratory Results: 11/08/17 09:42 11/08/17 09:42 11/08/17 11/08/17 11/08/17 08:53 08:53 09:42 WBC 5.1 4.5 RBC 3.00 L 2.79 L Hgb 11.1 L 10.5 L Hct 32.9 L 30.9 L MCV 110 H 111 H MCH 37.1 H 37.5 H MCHC 33.8 33.9 RDW 16.1 H 16.0 H Plt Count 237 213 Seg Neutrophils % 53.8 57.0 Lymphocytes % 28.6 26.4 Monocytes % 10.9 10.2 Eosinophils % 6.3 H 6.3 H Basophils % 0.4 0.1 Absolute Neutrophils 2.7 2.6 Absolute Lymphocytes 1.4 1.2 Absolute Monocytes 0.6 0.5 Absolute Eosinophils 0.3 0.3 Absolute Basophils 0.0 0.0 Sodium 145.2 H Potassium 4.3 Chloride 109 H Carbon Dioxide 23 Anion Gap 13 BUN 26 H Creatinine 2.13 H Est GFR ( Amer) 36 L Est GFR (Non-Af Amer) 30 L Glucose 113 H Calcium 9.1 Total Bilirubin 0.3 AST 17 ALT 19 L Alkaline Phosphatase 75 Total Protein 6.1 L Albumin 3.2 L 11/08/17 09:42 WBC RBC Hgb Hct MCV MCH MCHC RDW Plt Count Seg Neutrophils % Lymphocytes % Monocytes % Eosinophils % Basophils % Absolute Neutrophils Absolute Lymphocytes Absolute Monocytes Absolute Eosinophils Absolute Basophils Sodium 144.2 Potassium 4.0 Chloride 109 H Carbon Dioxide 24 Anion Gap 11 BUN 26 H Creatinine 2.12 H Est GFR ( Amer) 36 L Est GFR (Non-Af Amer) 30 L Glucose 129 H Calcium 8.8 Total Bilirubin 0.2 AST 16 L ALT 17 L Alkaline Phosphatase 70 Total Protein 5.6 L Albumin 2.9 L 11/06/17 11/06/17 11/06/17 15:15 15:15 23:04 Creatine Kinase 55 37 L CK-MB (CK-2) 0.69 Troponin I < 0.012 11/06/17 11/07/17 11/07/17 23:04 07:45 07:45 Creatine Kinase 44 L CK-MB (CK-2) 0.77 0.78 Troponin I 0.016 0.016 Impressions: Renal Ultrasound 11/06/17 00:00 IMPRESSION: No suspicious urinary tract findings. Limited evaluation as above. No suggestion of obstruction. Qualifiers - * PATIENT BEING DISCHARGED WITH ANY OF THE FOLLOWING DIAGNOSIS: No
[2017-11-09 05:30] LABS: ABSOLUTE EOSINOPHILS # (AUTO) 0.3 10^3/uL (0.0-0.6); ABSOLUTE LYMPHOCYTES (AUTO) 1.4 10^3/uL (0.5-4.7); ABSOLUTE MONOCYTES (AUTO) 0.6 10^3/uL (0.1-1.4); ABSOLUTE NEUT (AUTO) 2.2 10^3/uL (1.7-8.2); BASOPHILS % (AUTO) 0.5 % (0-2); HEMATOCRIT 31.6 % (37.9-51.0); HEMOGLOBIN 10.7 g/dL (13.5-17.0); LYMPHOCYTES % (AUTO) 30.5 % (13-45); MEAN CORPUSCULAR HEMOGLOBIN 37.4 pg (27.0-33.4); MEAN CORPUSCULAR HGB CONC 33.8 g/dL (32.0-36.0); MEAN CORPUSCULAR VOLUME 111 fl (80-97); MONOCYTES % (AUTO) 12.5 % (3-13); PLATELET COUNT 211 10^3/uL (150-450); RED BLOOD COUNT 2.85 10^6/uL (4.35-5.55); RED CELL DISTRIBUTION WIDTH 15.9 % (11.5-14.0); SEGMENTED NEUTROPHILS % (AUTO) 49.5 % (42-78); TOTAL CELLS COUNTED % (AUTO) 100 %; WHITE BLOOD COUNT 4.5 10^3/uL (4.0-10.5)
[2017-11-09 05:49] LABS: ALANINE AMINOTRANSFERASE 25 U/L (21-72); ALBUMIN 2.8 g/dL (3.5-5.0); ALKALINE PHOSPHATASE 68 U/L (38-126); ANION GAP 8 (5-19); ASPARTATE AMINO TRANSFERASE 18 U/L (17-59); BILIRUBIN,DIRECT 0.2 mg/dL (0.0-0.4); BILIRUBIN,TOTAL 0.2 mg/dL (0.2-1.3); BLOOD UREA NITROGEN 25 mg/dL (7-20); CARBON DIOXIDE 26 mmol/L (22-30); CHLORIDE 109 mmol/L (98-107); GLUCOSE 108 mg/dL (75-110); SODIUM 143.1 mmol/L (137-145); TOTAL PROTEIN 5.6 g/dL (6.3-8.2)
[2017-11-09] MEDS: HEPARIN SOD (PORCINE) 5,000 UNIT/ML 1 ML SYRINGE SUBCUT SCH ×2 (06:02→15:00)
[2017-11-09 06:28] LABS: ANISOCYTOSIS 1+; HYPOCHROMASIA 1+
[2017-11-09 06:31] LABS: PLATELET COMMENT ADEQUATE
[2017-11-09 08:25] LABS: PATH REVIEW PATHOLOGIST REVIEWED
[2017-11-09 09:01] LABS: ABSOLUTE EOSINOPHILS # (AUTO) 0.3 10^3/uL (0.0-0.6); ABSOLUTE LYMPHOCYTES (AUTO) 1.2 10^3/uL (0.5-4.7); ABSOLUTE MONOCYTES (AUTO) 0.6 10^3/uL (0.1-1.4); ABSOLUTE NEUT (AUTO) 2.6 10^3/uL (1.7-8.2); BASOPHILS % (AUTO) 0.4 % (0-2); EOSINOPHILS % (AUTO) 6.9 % (0-6); HEMATOCRIT 31.8 % (37.9-51.0); HEMOGLOBIN 10.6 g/dL (13.5-17.0); LYMPHOCYTES % (AUTO) 25.9 % (13-45); MEAN CORPUSCULAR HEMOGLOBIN 36.9 pg (27.0-33.4); MEAN CORPUSCULAR HGB CONC 33.4 g/dL (32.0-36.0); MEAN CORPUSCULAR VOLUME 110 fl (80-97); MONOCYTES % (AUTO) 13.3 % (3-13); PLATELET COUNT 240 10^3/uL (150-450); RED BLOOD COUNT 2.89 10^6/uL (4.35-5.55); RED CELL DISTRIBUTION WIDTH 15.7 % (11.5-14.0); SEGMENTED NEUTROPHILS % (AUTO) 53.5 % (42-78); TOTAL CELLS COUNTED % (AUTO) 100 %; WHITE BLOOD COUNT 4.8 10^3/uL (4.0-10.5)
[2017-11-09 09:26] LABS: ALANINE AMINOTRANSFERASE 23 U/L (21-72); ALBUMIN 2.8 g/dL (3.5-5.0); ALKALINE PHOSPHATASE 72 U/L (38-126); ANION GAP 11 (5-19); ASPARTATE AMINO TRANSFERASE 16 U/L (17-59); BILIRUBIN,DIRECT 0.2 mg/dL (0.0-0.4); BILIRUBIN,TOTAL 0.2 mg/dL (0.2-1.3); BLOOD UREA NITROGEN 25 mg/dL (7-20); CALCIUM 8.9 mg/dL (8.4-10.2); CARBON DIOXIDE 23 mmol/L (22-30); CHLORIDE 109 mmol/L (98-107); GLUCOSE 105 mg/dL (75-110); POTASSIUM 4.2 mmol/L (3.6-5.0); SODIUM 142.8 mmol/L (137-145); TOTAL PROTEIN 5.1 g/dL (6.3-8.2)
[2017-11-09 09:57] LABS: ANISOCYTOSIS 1+; PLATELET COMMENT ADEQUATE
[2017-11-09] MEDS ORDERED: FEBUXOSTAT 40 MG TABLET PO SCH (10:00)
[2017-11-09] MEDS: AMLODIPINE BESYLATE 10 MG TABLET PO SCH (10:22)
[2017-11-09] MEDS: ASPIRIN 81 MG TABLET, ENT COATED PO SCH (10:22)
[2017-11-09] MEDS: CLONIDINE HCL 0.1 MG TABLET PO SCH (10:24)
[2017-11-09] MEDS: CYANOCOBALAMIN (VITAMIN B-12) INJ 1000 MCG/1 ML VIAL IM SCH (10:24)
[2017-11-09] MEDS: CHOLECALCIFEROL (D3) 1,000 UNIT TABLET PO SCH (10:24)
[2017-11-09] MEDS: COLCHICINE 0.6 MG TABLET PO SCH (10:24)
[2017-11-09] MEDS: HYDROCHLOROTHIAZIDE 25 MG TABLET PO SCH (10:24)
[2017-11-09] MEDS: VALSARTAN 160 MG TABLET PO SCH (10:24)
[2017-11-09 13:00] VITALS: BP 133/74
== END 2017-11-09 18:50 | disposition home health service (06) | DRG 603 ==
LOC: 4S 17:47
PROVIDERS: ADMIT Internal Medicine; ATTEND Internal Medicine
DX: L03.116 Cellulitis of left lower limb (principal); N17.9 Acute kidney failure, unspecified; N25.81 Secondary hyperparathyroidism of renal origin; Z68.43 Body mass index [BMI] 50.0-59.9, adult; L03.115 Cellulitis of right lower limb; I12.9 Hypertensive chronic kidney disease with stage 1 through stage 4 chronic kidney disease, or unspecified chronic kidney disease; N18.3 Chronic kidney disease, stage 3 (moderate); D51.0 Vitamin B12 deficiency anemia due to intrinsic factor deficiency; M10.9 Gout, unspecified; I89.0 Lymphedema, not elsewhere classified; E66.01 Morbid (severe) obesity due to excess calories
CPT/HCPCS: 36415; 76770; 80048; 80053; 80076; 81001; 82550; 82553; 82570; 82607; 83921; 83970; 84156; 84484; 84550; 85025; 85379; 85652; 86140; 87040; 87086; 93005; 93010; 93970; J1644; J1885; J2270; J2405; J3420; J3490; J7030

== ENCOUNTER → 2017-12-02 | Outpatient (CLI) | payer MEDICARE, BC, OTHER ==
[2017-12-02 11:27] LABS: APPEARANCE,URINE CLEAR; BILIRUBIN,URINE NEGATIVE (NEGATIVE); COLOR,URINE YELLOW; GLUCOSE, URINE NEGATIVE (NEGATIVE); KETONES,URINE NEGATIVE (NEGATIVE); LEUKOCYTE ESTERASE,URINE NEGATIVE (NEGATIVE); NITRITE,URINE NEGATIVE (NEGATIVE); PROTEIN,URINE NEGATIVE (NEGATIVE); URINE SPECIFIC GRAVITY 1.011; UROBILINOGEN,URINE NEGATIVE mg/dL (<2.0)
[2017-12-03 09:39] LABS: MICROALBUMIN URINE 4.6 ug/mL (Not Estab.)
== END ==
LOC: OD 10:34
PROVIDERS: ATTEND Internal Medicine Nephrology
DX: N18.3 Chronic kidney disease, stage 3 (moderate) (principal); D63.1 Anemia in chronic kidney disease; N25.81 Secondary hyperparathyroidism of renal origin
CPT/HCPCS: 81001; 82043; 82570

== ENCOUNTER → 2017-12-07 | Outpatient (CLI) | payer MEDICARE, BC, OTHER ==
[2017-12-07 09:12] LABS: ABSOLUTE EOSINOPHILS # (AUTO) 0.4 10^3/uL (0.0-0.6); ABSOLUTE LYMPHOCYTES (AUTO) 1.4 10^3/uL (0.5-4.7); ABSOLUTE MONOCYTES (AUTO) 0.8 10^3/uL (0.1-1.4); ABSOLUTE NEUT (AUTO) 1.8 10^3/uL (1.7-8.2); BASOPHILS % (AUTO) 0.8 % (0-2); EOSINOPHILS % (AUTO) 8.6 % (0-6); HEMATOCRIT 37.5 % (37.9-51.0); HEMOGLOBIN 12.7 g/dL (13.5-17.0); LYMPHOCYTES % (AUTO) 31.8 % (13-45); MEAN CORPUSCULAR HEMOGLOBIN 35.2 pg (27.0-33.4); MEAN CORPUSCULAR HGB CONC 33.7 g/dL (32.0-36.0); MONOCYTES % (AUTO) 18.7 % (3-13); PLATELET COUNT 200 10^3/uL (150-450); RED CELL DISTRIBUTION WIDTH 15.7 % (11.5-14.0); SEGMENTED NEUTROPHILS % (AUTO) 40.1 % (42-78); TOTAL CELLS COUNTED % (AUTO) 100 %; WHITE BLOOD COUNT 4.5 10^3/uL (4.0-10.5)
[2017-12-07 09:26] LABS: MEAN CORPUSCULAR VOLUME 104 fl (80-97)
[2017-12-07 09:28] LABS: ALBUMIN 3.8 g/dL (3.5-5.0); ANION GAP 13 (5-19); BLOOD UREA NITROGEN 43 mg/dL (7-20); CALCIUM 9.3 mg/dL (8.4-10.2); CARBON DIOXIDE 27 mmol/L (22-30); CHLORIDE 108 mmol/L (98-107); GLUCOSE 126 mg/dL (75-110); PHOSPHORUS 4.4 mg/dL (2.5-4.5); POTASSIUM 3.7 mmol/L (3.6-5.0); SODIUM 148.1 mmol/L (137-145)
== END ==
LOC: OD 08:25
PROVIDERS: ATTEND Internal Medicine Nephrology
DX: N18.3 Chronic kidney disease, stage 3 (moderate) (principal); D63.1 Anemia in chronic kidney disease; N25.81 Secondary hyperparathyroidism of renal origin
CPT/HCPCS: 36415; 80048; 82040; 82306; 83970; 84100; 85025

== ENCOUNTER → 2018-10-26 | Outpatient (CLI) | payer MEDICARE, BC, OTHER ==
[2018-10-26 16:46] LABS: ABSOLUTE EOSINOPHILS # (AUTO) 0.1 10^3/uL (0.0-0.6); ABSOLUTE LYMPHOCYTES (AUTO) 1.5 10^3/uL (0.5-4.7); ABSOLUTE MONOCYTES (AUTO) 0.9 10^3/uL (0.1-1.4); ABSOLUTE NEUT (AUTO) 3.2 10^3/uL (1.7-8.2); BASOPHILS % (AUTO) 0.4 % (0-2); EOSINOPHILS % (AUTO) 2.5 % (0-6); HEMATOCRIT 33.2 % (37.9-51.0); HEMOGLOBIN 10.9 g/dL (13.5-17.0); LYMPHOCYTES % (AUTO) 26.6 % (13-45); MEAN CORPUSCULAR HGB CONC 32.7 g/dL (32.0-36.0); MEAN CORPUSCULAR VOLUME 89 fl (80-97); MONOCYTES % (AUTO) 14.9 % (3-13); PLATELET COUNT 272 10^3/uL (150-450); RED BLOOD COUNT 3.74 10^6/uL (4.35-5.55); SEGMENTED NEUTROPHILS % (AUTO) 55.6 % (42-78); TOTAL CELLS COUNTED % (AUTO) 100 %; WHITE BLOOD COUNT 5.8 10^3/uL (4.0-10.5)
[2018-10-26 17:16] LABS: ANION GAP 11 (5-19); BLOOD UREA NITROGEN 51 mg/dL (7-20); CALCIUM 9.7 mg/dL (8.4-10.2); CARBON DIOXIDE 27 mmol/L (22-30); CHLORIDE 104 mmol/L (98-107); GLUCOSE 88 mg/dL (75-110); POTASSIUM 4.2 mmol/L (3.6-5.0)
== END ==
LOC: OD 16:17
PROVIDERS: ATTEND Internal Medicine Nephrology
DX: N18.3 Chronic kidney disease, stage 3 (moderate) (principal); D63.1 Anemia in chronic kidney disease; N25.81 Secondary hyperparathyroidism of renal origin
CPT/HCPCS: 36415; 80048; 83970; 85025

== ENCOUNTER 2019-01-16 10:42 | Emergency (ER) | payer MEDICARE, BC, OTHER ==
--- NOTE | 2019-01-16 10:53 | ER Document Report ---
ED Medical Screen (RME) - General Chief Complaint: Abnormal Lab Results Stated Complaint: ABNORMAL LABS Time Seen by Provider: 01/16/19 10:52 Primary Care Provider: MARIANNA SMALL MD [Primary Care Provider] - Follow up as needed Mode of Arrival: Wheelchair Information source: Patient Notes: Patient is an 83-year-old male presented to the emergency department with complaints of abnormal labs. Patient reports he had labs drawn last week, his primary care provider called him this morning stating that his kidney function is severely abnormal. Patient denies any acute symptoms today. Exam: Patient alert, oriented, answering all questions appropriately. No acute distress noted. I have greeted and performed a rapid initial assessment of this patient. A comp rehensive ED assessment and evaluation of the patient, analysis of test results and completion of the medical decision making process will be conducted by additional ED providers. I have specifically instructed the patient or family members with the patient to immediately return to any nursing staff should anything change in the patient's condition or with their chief complaint. This medical record was dictated with voice recognizing software. There may be grammatical, syntax errors that are unintended. TRAVEL OUTSIDE OF THE [place] IN LAST 30 DAYS: No - Related Data Allergies/Adverse Reactions: No Known Allergies Allergy (Verified 11/05/17 20:58) Past Medical History - Past Medical History Cardiac Medical History: Reports: Hx Hypertension, Hx Pulmonary Embolism Endocrine Medical History: Denies: Hx Diabetes Mellitus Type 1 Renal/ Medical History: Reports: Hx Renal Insufficiency Malignancy Medical History: Reports Hx Pancreatic Cancer, Reports Hx Prostate Cancer Skin Medical History: Denies Hx MRSA Psychiatric Medical History: Denies: Hx Depression Past Surgical History: Reports: Hx Appendectomy, Hx Tonsillectomy - Immunizations Hx Diphtheria, Pertussis, Tetanus Vaccination: Yes - unknown Physical Exam - Vital signs Vitals: Temp Pulse Resp BP Pulse Ox 97.9 F 80 20 153/62 H 95 01/16/19 10:47 01/16/19 10:47 01/16/19 10:47 01/16/19 10:47 01/16/19 10:47 Course - Vital Signs Vital signs: Temp Pulse Resp BP Pulse Ox 97.9 F 80 20 153/62 H 95 01/16/19 10:47 01/16/19 10:47 01/16/19 10:47 01/16/19 10:47 01/16/19 10:47 Doctor's Discharge - Discharge Referrals: MARIANNA SMALL MD [Primary Care Provider] - Follow up as needed
[2019-01-16 11:25] LABS: ABSOLUTE EOSINOPHILS # (AUTO) 0.2 10^3/uL (0.0-0.6); ABSOLUTE LYMPHOCYTES (AUTO) 0.9 10^3/uL (0.5-4.7); ABSOLUTE MONOCYTES (AUTO) 0.7 10^3/uL (0.1-1.4); ABSOLUTE NEUT (AUTO) 3.8 10^3/uL (1.7-8.2); BASOPHILS % (AUTO) 0.5 % (0-2); EOSINOPHILS % (AUTO) 3.5 % (0-6); HEMATOCRIT 34.4 % (37.9-51.0); HEMOGLOBIN 11.4 g/dL (13.5-17.0); LYMPHOCYTES % (AUTO) 16.8 % (13-45); MEAN CORPUSCULAR HEMOGLOBIN 29.7 pg (27.0-33.4); MEAN CORPUSCULAR HGB CONC 33.2 g/dL (32.0-36.0); MEAN CORPUSCULAR VOLUME 89 fl (80-97); MONOCYTES % (AUTO) 12.4 % (3-13); PLATELET COUNT 249 10^3/uL (150-450); RED BLOOD COUNT 3.85 10^6/uL (4.35-5.55); RED CELL DISTRIBUTION WIDTH 17.3 % (11.5-14.0); SEGMENTED NEUTROPHILS % (AUTO) 66.8 % (42-78); TOTAL CELLS COUNTED % (AUTO) 100 %; WHITE BLOOD COUNT 5.6 10^3/uL (4.0-10.5)
--- NOTE | 2019-01-16 11:43 | ER Document Report ---
ED General - General Chief Complaint: Abnormal Lab Results Stated Complaint: ABNORMAL LABS Time Seen by Provider: 01/16/19 10:52 Primary Care Provider: MARIANNA SMALL MD [ACTIVE STAFF] - Follow up as needed Mode of Arrival: Wheelchair Information source: Patient, Relative, [facility] Records Notes: This 83-year-old male patient was referred to the emergency room for kidney function evaluation. He has known chronic renal insufficiency. He saw his primary care provider Dr. Lanier on Wednesday and had routine lab work done. The office called him today and told him his kidneys were shutting down and he needed to come to the emergency room. He states he feels the same as he normally feels. TRAVEL OUTSIDE OF THE [place] IN LAST 30 DAYS: No - Related Data Allergies/Adverse Reactions: No Known Allergies Allergy (Verified 11/05/17 20:58) Past Medical History - General Information source: Patient, Relative, [facility] Records - Social History Smoking Status: Never Smoker Cigarette use (# per day): No Chew tobacco use (# tins/day): No Smoking Education Provided: No Frequency of alcohol use: None Drug Abuse: None Lives with: Family Family History: Other - CHF Patient has suicidal ideation: No Patient has homicidal ideation: No - Past Medical History Cardiac Medical History: Reports: Hx Hypertension, Hx Pulmonary Embolism Renal/ Medical History: Reports: Hx Renal Insufficiency Malignancy Medical History: Reports Hx Pancreatic Cancer, Reports Hx Prostate Cancer Skin Medical History: Reports Other - Lymphedema with chronic ulcerations to the lower extremities Past Surgical History: Reports: Hx Appendectomy, Hx Tonsillectomy - Immunizations Hx Diphtheria, Pertussis, Tetanus Vaccination: Yes - unknown Hx Pneumococcal Vaccination: 11/28/13 Review of Systems - Review of Systems Constitutional: No symptoms reported EENT: No symptoms reported Cardiovascular: Edema - lymphedema Respiratory: No symptoms reported Gastrointestinal: No symptoms reported Genitourinary: No symptoms reported Musculoskeletal: No symptoms reported Skin: Other - Chronic ulcerations developed to the lower extremities secondary to his lymphedema Hematologic/Lymphatic: Other - Lymphedema Neurological/Psychological: No symptoms reported Physical Exam - Vital signs Vitals: Temp Pulse Resp BP Pulse Ox 97.9 F 80 20 153/62 H 95 01/16/19 10:47 01/16/19 10:47 01/16/19 10:47 01/16/19 10:47 01/16/19 10:47 Interpretation: Normal - General General appearance: Appears well, Alert In distress: None - HEENT Head: Normocephalic, Atraumatic Eyes: Normal Pupils: PERRL - Respiratory Respiratory status: No respiratory distress - Cardiovascular Rhythm: Regular - Abdominal Inspection: Morbidly Obese Bowel sounds: Normal Tenderness: Nontender - Back Back: Normal - Extremities General upper extremity: Normal inspection General lower extremity: Other - Bilateral lymphedema, old scarring from chronic stasis ulcerations - Neurological Neuro grossly intact: Yes - Psychological Associated symptoms: Normal affect, Normal mood - Skin Skin Temperature: Warm Skin Moisture: Dry Skin Color: Normal Course - Re-evaluation Re-evalutation: 01/16/19 13:53 I discussed the case with Dr. Lanier. He had routine lab work done on Wednesday and it showed a creatinine of 3.0, they were not aware that he is a renal patient and this creatinine is around his baseline. - Vital Signs Vital signs: Temp Pulse Resp BP Pulse Ox 97.6 F 80 11 L 120/74 100 01/16/19 14:00 01/16/19 10:47 01/16/19 14:00 01/16/19 14:00 01/16/19 14:00 - Laboratory Result Diagrams: 01/16/19 11:10 01/16/19 11:10 Laboratory results interpreted by me: 01/16/19 01/16/19 11:10 11:10 RBC 3.85 L Hgb 11.4 L Hct 34.4 L RDW 17.3 H BUN 49 H Creatinine 2.69 H Est GFR ( Amer) 28 L Est GFR (Non-Af Amer) 23 L Glucose 122 H Discharge - Discharge Clinical Impression: Chronic renal insufficiency Qualifiers: Chronic kidney disease stage: unspecified stage Qualified Code(s): N18.9 - Chronic kidney disease, unspecified Condition: Stable Disposition: HOME, SELF-CARE Additional Instructions: Your renal function actually looks better today than it did 2 months ago. The lab work done on Wednesday was consistent with your renal function baseline. Follow-up with your doctor as needed. Referrals: MARIANNA SMALL MD [ACTIVE STAFF] - Follow up as needed
[2019-01-16 11:51] LABS: ALBUMIN 3.9 g/dL (3.5-5.0); ALKALINE PHOSPHATASE 103 U/L (38-126); ANION GAP 13 (5-19); ASPARTATE AMINO TRANSFERASE 23 U/L (17-59); BILIRUBIN,DIRECT 0.3 mg/dL (0.0-0.4); BILIRUBIN,TOTAL 0.3 mg/dL (0.2-1.3); BLOOD UREA NITROGEN 49 mg/dL (7-20); CALCIUM 9.9 mg/dL (8.4-10.2); CARBON DIOXIDE 25 mmol/L (22-30); CHLORIDE 104 mmol/L (98-107); GLUCOSE 122 mg/dL (75-110); POTASSIUM 4.1 mmol/L (3.6-5.0); TOTAL PROTEIN 6.9 g/dL (6.3-8.2)
[2019-01-16 13:59] LABS: APPEARANCE,URINE CLEAR; BILIRUBIN,URINE NEGATIVE (NEGATIVE); COLOR,URINE YELLOW; GLUCOSE, URINE NEGATIVE (NEGATIVE); KETONES,URINE NEGATIVE (NEGATIVE); LEUKOCYTE ESTERASE,URINE NEGATIVE (NEGATIVE); NITRITE,URINE NEGATIVE (NEGATIVE); PROTEIN,URINE NEGATIVE (NEGATIVE); URINE SPECIFIC GRAVITY 1.012; UROBILINOGEN,URINE NEGATIVE mg/dL (<2.0)
[2019-01-16 14:29] VITALS: BP 120/74
== END 2019-01-16 14:38 | disposition home or self-care (01) ==
LOC: ER 10:42
DX: I12.9 Hypertensive chronic kidney disease with stage 1 through stage 4 chronic kidney disease, or unspecified chronic kidney disease (principal); N18.9 Chronic kidney disease, unspecified; E66.01 Morbid (severe) obesity due to excess calories; I89.0 Lymphedema, not elsewhere classified; Z85.46 Personal history of malignant neoplasm of prostate; Z85.07 Personal history of malignant neoplasm of pancreas; Z86.711 Personal history of pulmonary embolism
CPT/HCPCS: 36415; 80053; 81001; 83735; 85025

== ENCOUNTER 2019-01-22 08:18 | Emergency (ER) | payer MEDICARE, BC, OTHER ==
--- NOTE | 2019-01-22 10:29 | ER Document Report ---
ED Medical Screen (RME) - General Chief Complaint: Arm Problem Stated Complaint: RIGHT ARM SWELLING Time Seen by Provider: 01/22/19 10:24 Primary Care Provider: BRIDGET MENA MD [Primary Care Provider] - Follow up as needed Notes: 83 yo male presents to ed for pain and swelling to right arm since night, now having discomfort in the left arm he has an extensive history that has been reviewed with him. Labs and Doppler will be completed and he will be evaluated by another provider. I have greeted and performed a rapid initial assessment of this patient. A comprehensive ED assessment and evaluation of the patient, analysis of test results and completion of medical decision making process will be conducted by an additional ED providers. TRAVEL OUTSIDE OF THE [place] IN LAST 30 DAYS: No - Related Data Allergies/Adverse Reactions: No Known Allergies Allergy (Verified 01/22/19 10:30) Past Medical History - Social History Cigarette use (# per day): No Frequency of alcohol use: Rare Drug Abuse: None Lives with: Alone - Past Medical History Cardiac Medical History: Reports: Hx DVT, Hx Hypertension, Hx Pulmonary Embolism Pulmonary Medical History: Reports: Hx Pneumonia Renal/ Medical History: Reports: Hx Renal Insufficiency Malignancy Medical History: Reports Hx Pancreatic Cancer, Reports Hx Prostate Cancer GI Medical History: Reports: Hx Colonoscopy, Hx Endoscopy Musculoskeltal Medical History: Reports Hx Arthritis, Reports Hx Musculoskeletal Deformity, Reports Hx Musculoskeletal Trauma - ankle Psychiatric Medical History: Reports: Other - lymphedema long time Denies: Hx Depression Traumatic Medical History: Reports: Hx Fractures Past Surgical History: Reports: Hx Appendectomy, Hx Tonsillectomy - Immunizations Hx Diphtheria, Pertussis, Tetanus Vaccination: Yes - unknown Physical Exam - Vital signs Vitals: Temp Pulse Resp BP Pulse Ox 98.9 F 73 24 H 135/56 H 95 01/22/19 08:22 01/22/19 08:22 01/22/19 08:22 01/22/19 08:22 01/22/19 08:22 Course - Vital Signs Vital signs: Temp Pulse Resp BP Pulse Ox 98.9 F 73 24 H 135/56 H 95 01/22/19 08:22 01/22/19 08:22 01/22/19 08:22 01/22/19 08:22 01/22/19 08:22 - Laboratory Result Diagrams: 01/22/19 10:50 08/25/19 10:50 Laboratory results interpreted by me: 01/22/19 01/22/19 01/22/19 10:50 10:50 10:50 RBC 4.00 L Hgb 11.8 L Hct 35.7 L RDW 17.2 H Lymph % (Auto) 9.2 L Seg Neutrophils % 78.8 H APTT 42.2 H BUN 41 H Creatinine 2.44 H Est GFR ( Amer) 31 L Est GFR (MDRD) Non-Af 26 L Glucose 131 H Creatine Kinase 28 L Doctor's Discharge - Discharge Referrals: BRIDGET MENA MD [Primary Care Provider] - Follow up as needed
[2019-01-22 11:12] LABS: ABSOLUTE EOSINOPHILS # (AUTO) 0.1 10^3/uL (0.0-0.6); ABSOLUTE LYMPHOCYTES (AUTO) 0.8 10^3/uL (0.5-4.7); ABSOLUTE MONOCYTES (AUTO) 0.8 10^3/uL (0.1-1.4); ABSOLUTE NEUT (AUTO) 6.6 10^3/uL (1.7-8.2); BASOPHILS % (AUTO) 0.6 % (0-2); EOSINOPHILS % (AUTO) 1.3 % (0-6); HEMATOCRIT 35.7 % (37.9-51.0); HEMOGLOBIN 11.8 g/dL (13.5-17.0); LYMPHOCYTES % (AUTO) 9.2 % (13-45); MEAN CORPUSCULAR HEMOGLOBIN 29.5 pg (27.0-33.4); MEAN CORPUSCULAR HGB CONC 33.1 g/dL (32.0-36.0); MEAN CORPUSCULAR VOLUME 89 fl (80-97); MONOCYTES % (AUTO) 10.1 % (3-13); PLATELET COUNT 299 10^3/uL (150-450); RED CELL DISTRIBUTION WIDTH 17.2 % (11.5-14.0); SEGMENTED NEUTROPHILS % (AUTO) 78.8 % (42-78); TOTAL CELLS COUNTED % (AUTO) 100 %; WHITE BLOOD COUNT 8.4 10^3/uL (4.0-10.5)
[2019-01-22 11:15] LABS: INTERNATIONAL RATION (INR) 1.08
[2019-01-22 11:16] LABS: PARTIAL THROMBOPLASTIN TIME 42.2 SEC (23.5-35.8)
[2019-01-22 11:28] LABS: ALBUMIN 4.1 g/dL (3.5-5.0); ALKALINE PHOSPHATASE 114 U/L (38-126); ANION GAP 13 (5-19); ASPARTATE AMINO TRANSFERASE 21 U/L (17-59); BILIRUBIN,DIRECT 0.3 mg/dL (0.0-0.4); BILIRUBIN,TOTAL 0.5 mg/dL (0.2-1.3); BLOOD UREA NITROGEN 41 mg/dL (7-20); CARBON DIOXIDE 25 mmol/L (22-30); CHLORIDE 101 mmol/L (98-107); CREATINE KINASE 28 U/L (55-170); GLUCOSE 131 mg/dL (75-110); POTASSIUM 3.6 mmol/L (3.6-5.0); TOTAL PROTEIN 7.8 g/dL (6.3-8.2)
[2019-01-22 11:40] LABS: CREATINE KINASE MB 0.75 ng/mL (<4.55)
[2019-01-22 11:43] LABS: TROPONIN I < 0.012 ng/mL
--- NOTE | 2019-01-22 11:47 | RADIOLOGY REPORT (SQ) ---
EXAM DESCRIPTION: CHEST 2 VIEWS COMPLETED DATE/TIME: 01/22/2019 11:01 am REASON FOR STUDY: pain and swelling to right arm pain starting in le COMPARISON: 04/30/2016 NUMBER OF VIEWS: Two view. TECHNIQUE: Frontal and lateral radiographic views of the chest acquired. LIMITATIONS: None. FINDINGS: LUNGS AND PLEURA: No opacities, masses or pneumothorax. No pleural effusion. MEDIASTINUM AND HILAR STRUCTURES: No masses. No contour abnormalities. HEART AND VASCULAR STRUCTURES: Heart enlarged without failure. Aorta normal for age. BONES: No acute findings. HARDWARE: None in the chest. OTHER: No other significant finding. IMPRESSION: CARDIAC ENLARGEMENT WITHOUT FAILURE. TECHNICAL DOCUMENTATION: JOB ID: [id number] [employer]- All Rights Reserved Reading location - IP/workstation name: [email or web address]
--- NOTE | 2019-01-22 11:52 | ER Document Report ---
ED General - General Chief Complaint: Arm Problem Stated Complaint: RIGHT ARM SWELLING Time Seen by Provider: 01/22/19 10:24 Primary Care Provider: BRIDGET MENA MD [Primary Care Provider] - Follow up as needed TRAVEL OUTSIDE OF THE [place] IN LAST 30 DAYS: No - HPI Notes: Patient presents with progressive swelling of right hand wrist that started on . He has not had any traumas or falls no recent fevers or illnesses. He states that he may have a history of gout but is unsure. He states similar symptoms have happened in the past with joint swelling but it was to his lower leg in the past. - Related Data Allergies/Adverse Reactions: No Known Allergies Allergy (Verified 01/22/19 10:30) Past Medical History - Social History Smoking Status: Unknown if Ever Smoked Cigarette use (# per day): No Frequency of alcohol use: Rare Drug Abuse: None Lives with: Alone Family History: Other - CHF Patient has suicidal ideation: No Patient has homicidal ideation: No - Past Medical History Cardiac Medical History: Reports: Hx DVT, Hx Hypertension, Hx Pulmonary Embolism Pulmonary Medical History: Reports: Hx Pneumonia Renal/ Medical History: Reports: Hx Renal Insufficiency. Denies: Hx P eritoneal Dialysis Malignancy Medical History: Reports Hx Pancreatic Cancer, Reports Hx Prostate Cancer GI Medical History: Reports: Hx Colonoscopy, Hx Endoscopy Musculoskeletal Medical History: Reports Hx Arthritis, Reports Hx Musculoskeletal Deformity, Reports Hx Musculoskeletal Trauma - ankle Psychiatric Medical History: Reports: Other - lymphedema long time Denies: Hx Depression Traumatic Medical History: Reports: Hx Fractures Past Surgical History: Reports: Hx Appendectomy, Hx Tonsillectomy - Immunizations Hx Diphtheria, Pertussis, Tetanus Vaccination: Yes - unknown Hx Pneumococcal Vaccination: 11/28/13 Review of Systems - Review of Systems Constitutional: No symptoms reported EENT: No symptoms reported Cardiovascular: No symptoms reported Respiratory: No symptoms reported Gastrointestinal: No symptoms reported Genitourinary: No symptoms reported Male Genitourinary: See HPI Musculoskeletal: No symptoms reported Skin: No symptoms reported Hematologic/Lymphatic: No symptoms reported Neurological/Psychological: No symptoms reported Physical Exam - Vital signs Vitals: Temp Pulse Resp BP Pulse Ox 98.9 F 73 24 H 135/56 H 95 01/22/19 08:22 01/22/19 08:22 01/22/19 08:22 01/22/19 08:22 01/22/19 08:22 - General General appearance: Appears well, Alert - HEENT Head: Normocephalic Eyes: Normal Conjunctiva: Normal Cornea: Normal Extraocular movements intact: Yes - Respiratory Respiratory status: No respiratory distress Chest status: Nontender Breath sounds: Normal - Cardiovascular Rhythm: Regular Heart sounds: Normal auscultation Murmur: No - Extremities General upper extremity: Other - No warmth or erythema of right hand or wrist. Patient has diffuse swelling of right hand wrist and digits that is uniform in nature and pain with movement. +2 radial pulse. Patient also has mild pain with movements of right elbow. No warmth or induration noted around the elbow. Course - Re-evaluation Re-evalutation: 01/22/19 11:51 Patient's symptoms been progressive and started on of this past week. No recent fevers or illnesses no serum leukocytosis. Pending Doppler and x-ray at this time. Does not take pain medication on a daily basis. Does not appear infectious awaiting uric acid levels at this time. 01/22/19 13:52 Slightly elevated uric acid otherwise labs trending within patient's baseline are within normal limits. He does have diffuse soft tissue swelling of his right hand in the absence of any erythema or warmth. He is afebrile and does not have a leukocytosis. Due to these reasons as well as chronicity since do not feel patient has septic joint as he has diffuse swelling of entire hand with the absence of any other red flags. I did discuss strict return precautions to he and his daughter in the event of any erythema or warmth to return immediately to the emergency department otherwise he is to have his hand checked in 2 days by medical professional for r eevaluation. Will provide volar splint for support of hand at this time treat patient's pain with prescription of Sibley. He is to abstain from any alcohol or red meats. - Vital Signs Vital signs: Temp Pulse Resp BP Pulse Ox 98.9 F 62 24 H 133/86 H 96 01/22/19 08:22 01/22/19 13:16 01/22/19 08:22 01/22/19 13:16 01/22/19 13:16 - Laboratory Result Diagrams: 01/22/19 10:50 01/22/19 10:50 Laboratory results interpreted by me: 01/22/19 01/22/19 01/22/19 10:50 10:50 10:50 RBC 4.00 L Hgb 11.8 L Hct 35.7 L RDW 17.2 H Lymph % (Auto) 9.2 L Seg Neutrophils % 78.8 H APTT 42.2 H BUN 41 H Creatinine 2.44 H Est GFR ( Amer) 31 L Est GFR (MDRD) Non-Af 26 L Glucose 131 H Uric Acid Creatine Kinase 28 L 01/22/19 10:50 RBC Hgb Hct RDW Lymph % (Auto) Seg Neutrophils % APTT BUN Creatinine Est GFR ( Amer) Est GFR (MDRD) Non-Af Glucose Uric Acid 10.0 H Creatine Kinase Discharge - Discharge Clinical Impression: Swelling of right hand Condition: Good Disposition: HOME, SELF-CARE Instructions: Gout Diet ([facility]), Gout ([facility]) Prescriptions: Hydrocodone/Acetaminophen [Sibley 5-325 mg Tablet] 1 tab PO TID PRN #10 tablet PRN Reason: Referrals: BRIDGET MENA MD [Primary Care Provider] - 01/24/19 (For re-evaluation of your hand, come to the emergency department sooner if symptoms are worsening or development any redness or warmth of your extremity)
--- NOTE | 2019-01-22 12:54 | RADIOLOGY REPORT (SQ) ---
EXAM DESCRIPTION: VENOUS BILATERAL UPPER COMPLETED DATE/TIME: 01/22/2019 12:45 pm REASON FOR STUDY: pain and swelling to right arm and pain in left ar COMPARISON: None. TECHNIQUE: Dynamic and static fischer scale and color images acquired of the right and left arm venous system. Selected spectral images acquired with additional compression and augmentation maneuvers. The contralateral subclavian vein and internal jugular vein were also imaged. Images stored on PACS. LIMITATIONS: None. FINDINGS: INTERNAL JUGULAR VEIN: Normal phasicity, compression, augmentation. No visualized echogeni c material on fischer scale. No defects on color images. Comparison opposite side normal. SUBCLAVIAN VEIN: Normal compression, augmentation. No visualized echogenic material on fischer scale. No defects on color images. AXILLARY VEIN: Normal compression, augmentation. No visualized echogenic material on fischer scale. No d efects on color images. BRACHIAL VEIN: Normal compression, augmentation. No visualized echogenic material on fischer scale. No d efects on color images. BASILIC VEIN: Normal compression, augmentation. No visualized echogenic material on fischer scale. No de fects on color images. CEPHALIC VEIN: Normal compression, augmentation. No visualized echogenic material on fischer scale. No d efects on color images. OTHER: No other significant finding. IMPRESSION: NO EVIDENCE DVT OR SVT RIGHT OR LEFT ARM. TECHNICAL DOCUMENTATION: JOB ID: [id number] [employer]- All Rights Reserved Reading location - IP/workstation name: [email or web address]
[2019-01-22 13:22] VITALS: BP 133/86
--- NOTE | 2019-01-22 13:27 | RADIOLOGY REPORT (SQ) ---
EXAM DESCRIPTION: HAND RIGHT 3 VIEWS COMPLETED DATE/TIME: 01/22/2019 1:07 pm REASON FOR STUDY: swelling COMPARISON: None. EXAM PARAMETERS: NUMBER OF VIEWS: Three views. TECHNIQUE: AP, lateral and oblique radiographic images acquired of the right hand. LIMITATIONS: None. FINDINGS: MINERALIZATION: Normal. BONES: No acute fracture or dislocation. No worrisome bone lesions. 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 SOFT TISSUES: Diffuse swelling. No foreign body. OTHER: No other significant finding. IMPRESSION: Diffuse swelling. No fracture or foreign body. TECHNICAL DOCUMENTATION: JOB ID: [id number] [employer] All Rights Reserved Reading location - IP/workstation name: [email or web address]
[2019-01-22] MEDS ORDERED: OXYCODONE-ACETAMINOPHEN 5-325 MG TABLET PO ONE (13:30)
[2019-01-22 13:51] LABS: APPEARANCE,URINE CLEAR; BILIRUBIN,URINE NEGATIVE (NEGATIVE); COLOR,URINE YELLOW; GLUCOSE, URINE NEGATIVE (NEGATIVE); KETONES,URINE NEGATIVE (NEGATIVE); LEUKOCYTE ESTERASE,URINE NEGATIVE (NEGATIVE); NITRITE,URINE NEGATIVE (NEGATIVE); PROTEIN,URINE NEGATIVE (NEGATIVE); URINE SPECIFIC GRAVITY 1.012; UROBILINOGEN,URINE NEGATIVE mg/dL (<2.0)
== END 2019-01-22 15:30 | disposition home or self-care (01) ==
LOC: ER 08:18
DX: M79.89 Other specified soft tissue disorders (principal); I10 Essential (primary) hypertension; Z86.718 Personal history of other venous thrombosis and embolism; Z86.711 Personal history of pulmonary embolism
CPT/HCPCS: 99284; 36415; 82553; 82550; 83690; 84550; 85025; 85610; 85730; 80053; 81001; 84484; 93970; 71046; 73130; 29125; A9270

== ENCOUNTER → 2019-03-03 | Outpatient (CLI) | payer MEDICARE, BC, OTHER ==
[2019-03-03 17:58] LABS: APPEARANCE,URINE CLEAR; BILIRUBIN,URINE NEGATIVE (NEGATIVE); COLOR,URINE YELLOW; GLUCOSE, URINE NEGATIVE (NEGATIVE); KETONES,URINE NEGATIVE (NEGATIVE); LEUKOCYTE ESTERASE,URINE NEGATIVE (NEGATIVE); NITRITE,URINE NEGATIVE (NEGATIVE); PROTEIN,URINE NEGATIVE (NEGATIVE); URINE SPECIFIC GRAVITY 1.013; UROBILINOGEN,URINE NEGATIVE mg/dL (<2.0)
[2019-03-03 18:01] LABS: ANION GAP 14 (5-19); BLOOD UREA NITROGEN 47 mg/dL (7-20); CARBON DIOXIDE 23 mmol/L (22-30); CHLORIDE 104 mmol/L (98-107); GLUCOSE 104 mg/dL (75-110); IRON(TIBC) 49.9 ug/dL (49-181); POTASSIUM 3.9 mmol/L (3.6-5.0)
[2019-03-05 07:37] LABS: CREATININE URINE 101.6 mg/dL (Not Estab.); MICROALBUMIN URINE 11.6 ug/mL (Not Estab.)
== END ==
LOC: OD 16:36
PROVIDERS: ATTEND Internal Medicine Nephrology
DX: N18.9 Chronic kidney disease, unspecified (principal); I95.9 Hypotension, unspecified; D63.1 Anemia in chronic kidney disease; N25.81 Secondary hyperparathyroidism of renal origin; M10.031 Idiopathic gout, right wrist
CPT/HCPCS: 36415; 80048; 81001; 82043; 82306; 82570; 82728; 83540; 83550; 84550